=== PATIENT | male | born 1995 | race Caucasian/White ===

== ENCOUNTER 2017-08-23 00:16 | Emergency (ER) | payer OTHER ==
[2017-08-23 00:24] VITALS: TEMP 36.5
[2017-08-23] MEDS ORDERED: ONDANSETRON 4MG OD TAB PO ONE (00:45)
[2017-08-23] MEDS ORDERED: CLR10 PO (00:51)
[2017-08-23] MEDS ORDERED: CETI10TA84 PO (00:51)
--- NOTE | 2017-08-23 00:55 | EMERGENCY ROOM VISIT NOTE ---
History Report prepared by Chloeibalanna: Austin Alberts Under the Supervision of: Dr. Shelbie Ko D.O. First contact with patient: 00:19 Chief Complaint: ALCOHOL OVERDOSE Stated Complaint: ALCOHOL OVERDOSE History of Present Illness The patient is a 21 year old male who presents to the Emergency Room with constant alcohol intoxication occurring prior to arrival. He states the was drinking at the [employer]. Patient's aunt was driving when they were pulled over due to her not having her headlights on. His aunt was noted to be intoxicated, and was taken by police for fingerprinting, leaving the patient without a sober ride according to EMS. Patient admits to throwing up at least 2 times in the ER parking lot. Per patient, he has associated symptoms of nausea and "queasiness". Patient claims he had 2 [place] iced teas. Source of History: patient Onset: Prior to arrival Position: other (Global) Quality: other (Alcohol overdose) Timing: constant Associated Symptoms: + nausea, + vomiting Note: Patient states "queasiness". Review of Systems See HPI for pertinent positives & negatives. A total of 10 systems reviewed and were otherwise negative. Past Medical & Surgical Medical Problems: (1) Alcohol use (2) No Known Active Medical Problems Family History No pertinent family history stated. Social History Alcohol Use: occasionally Drug Use: none Marital Status: single Housing Status: lives with family Current/Historical Medications Scheduled Cetirizine (Zyrtec), 10 MG PO DAILY Loratadine (Claritin), 10 MG PO DAILY Allergies Coded Allergies: No Known Allergies (Unverified , 08/23/17) Physical Exam Vital Signs Date Time Temp Pulse Resp B/P (MAP) Pulse Ox O2 Delivery O2 Flow Rate FiO2 08/23/17 02:19 105 19 124/80 99 Room Air 08/23/17 01:38 114 18 126/80 98 Room Air 08/23/17 00:24 36.5 146 18 134/90 99 Room Air Physical Exam GENERAL: smells of EtOH, alert, well appearing, well nourished, no distress, non -toxic EYE EXAM: normal conjunctiva, PERRL and EOM's grossly intact OROPHARYNX: no exudate, no erythema, lips, buccal mucosa, and tongue normal and mucous membranes are moist NECK: supple, no nuchal rigidity, no adenopathy, non-tender LUNGS: Clear to auscultation. Normal chest wall mechanics HEART: no murmurs, S1 normal and S2 normal ABDOMEN: abdomen soft, non-tender, normo-active bowel sounds, no masses, no rebound or guarding. BACK: Back is symmetrical on inspection and there is no deformity, no midline tenderness, no CVA tenderness. SKIN: no rashes and no bruising UPPER EXTREMITIES: upper extremities are grossly normal. LOWER EXTREMITIES: No pitting edema. NEURO EXAM: Normal sensorium, cranial nerves II-XII grossly intact, normal speech, no gross weakness of arms, no gross weakness of legs. Medical Decision & Procedures Medications Administered Medications (Trade) Dose Ordered Sig/Mary Route Start Time Stop Time Status Last Admin Dose Admin Ondansetron HCl (Zofran Odt) 4 mg ONE ONCE PO 08/23/17 00:45 08/23/17 00:46 DC 08/23/17 00:41 4 MG ED Course 0020: The patient was evaluated in room B11. A complete history and physical exam was performed. 0045: Zofran Odt 4mg PO. 0241: Patient was complaints, vital signs stable, no recurrent vomiting. Father has now arrived and will assume responsibility for the patient and transport him home. Medical Decision Differential diagnosis: Etiologies such as alcohol intoxication, toxicologic, infection, hypoglycemia, electrolyte abnormalities, cardiac sources, intracerebral event, neurologic, as well as others were entertained. Pt with mild clinical intoxication here, unable to be released by himself. Pt called parents and father called back stating he would come pick the patient up. Pt ambulating with a steady gait, no recurrent vomiting, VS stable. No hx of trauma and no additional complaints by the patient. Medication Reconcilliation Current Medication List: was personally reviewed by me Blood Pressure Screening Patient's blood pressure: Normal blood pressure Blood pressure disposition: Did not require urgent referral Impression Primary Impression: Alcohol use Scribe Attestation The scribe's documentation has been prepared under my direction and personally reviewed by me in its entirety. I confirm that the note above accurately reflects all work, treatment, procedures, and medical decision making performed by me. Departure Information Dispostion Home / Self-Care Referrals Omar Robertson M.D. Forms HOME CARE DOCUMENTATION FORM, IMPORTANT VISIT INFORMATION Patient Instructions Alcohol Intoxication - [facility], [facility] Additional Instructions Please drink responsibly and in a safe location. Do not drink and drive. If you have any new or concerning symptoms, please return to the emergency room.
[2017-08-23 02:19] VITALS: BP 124/80; PULSE 105; O2SAT 99
== END 2017-08-23 02:50 | disposition home or self-care (01) ==
LOC: EDBD 00:16 → C.EDB 00:19
DX: Z72.89 Other problems related to lifestyle (principal)